=== PATIENT | male | born 1980 | race African-American/Black ===

== ENCOUNTER 2016-07-11 16:50 | Emergency (ER) | payer OTHER ==
[~2016-07-11] VITALS: Ht 170.2 cm; Wt 103.0 kg
[2016-07-11 16:51] VITALS: BP 114/68; PULSE 65; RESP 15; TEMP 98.2; O2SAT 98
[2016-07-11] MEDS ORDERED: PRAZ1 PO (18:28)
[2016-07-11] MEDS ORDERED: ALPR.5 PO (18:28)
[2016-07-11] MEDS ORDERED: KETOROLAC TROMETHAMINE 60 MG/2 ML (IM) VIAL IM ONE (18:30)
[2016-07-11] MEDS ORDERED: ONDANSETRON ODT 4 MG TAB PO ONE (18:30)
[2016-07-11] MEDS ORDERED: diphenhydrAMINE HCL 50 MG CAP PO ONE (18:30)
[2016-07-11] MEDS ORDERED: ZITHTAB PO (18:33)
[2016-07-11] MEDS ORDERED: IBUP800T23 PO (18:33)
[2016-07-11] MEDS ORDERED: MOME17I EACH NARE (18:34)
[2016-07-11] MEDS ORDERED: BENZ100 PO (18:34)
--- NOTE | 2016-07-11 18:51 | PD ---
HPI Chief Complaint: Headache Time Seen by Provider: 18:28 Travel History International Travel<30 days: No Contact w/Intl Traveler<30days: No Traveled to known affect area: No History of Present Illness HPI 36-year-old male presents to the emergency Department with complaint of headache and "brain zaps "3-4 weeks. He has been seen in the ER 3 times at other hospitals in the past 3 weeks. He has been seen by the [facility] twice and for [facility] just this past Thursday. Per the patient he has had a CT brain which was negative. He has had an MRI of the brain which was negative. He has a follow-up appointment on August 11 with neurology. Describes the headache as "just a sensation "that is all over. Describes it as pulsations and electrical shocks. Headache gradually onset. It was not sudden onset. He says the headache is constant and fluctuates in intensity. Rates headache 6/10. He has taken ibuprofen with some relief of the headache. He thinks the headache may be related to "antidepressant withdrawals "from Prozac that he last took at the end of April or beginning of May. He denies change in mentation, confusion, disorientation. Denies focal deficits or weakness. Denies paresthesias, loss of sensation, decreased range of motion, decreased strength to all extremities. Denies change in speech. Denies difficulty with ambulation. Patient is also complaining of onset of cough, nasal congestion, chest congestion this week. Said he had a fever when he was seen in the ER on Thursday for [facility] but did not know how high his fever was. Reports nausea without vomiting. Reports diarrhea. Had a flu test on Thursday which was negative. Denies sore throat, ear pain. Reports sinus pressure. Has taken cold and flu pills with some relief of symptoms. Denies illicit drug use. Reports social EtOH use. No known allergies. Takes Minipress for history of nightmares. Dr. Srinivasan is primary care provider. No other modifying factors or associated signs and symptoms. PFSH Social History Alcohol Use: Yes (socially) Tobacco Use: No Substance Use: No Allergies-Medications (Allergen,Severity, Reaction): Coded Allergies: No Known Allergies (Unverified , 07/11/16) Reported Meds & Prescriptions Reported Meds & Active Scripts Active Tessalon Perles (Benzonatate) 100 Mg Cap 100 Mg PO TID PRN Nasonex Nasal Derby (Mometasone Furoate) 50 Mcg/Act Naspr 2 Derby EACH NARE DAILY PRN Ibuprofen 800 Mg Tab 800 Mg PO Q6HR PRN Zithromax Z-Dirk (Azithromycin) 250 Mg Dspk 250 Mg PO DIRECTED 500 MG (2 tabs) day 1, then 1 tab days 2-5. Reported Xanax (Alprazolam) 0.5 Mg Tab 0.5 Mg PO Q6H PRN Minipress (Prazosin HCl) 1 Mg Cap 1 Mg PO HS Review of Systems Except as stated in HPI: all other systems reviewed are Neg Physical Exam Narrative GENERAL: Well-nourished, well-developed male patient, in no acute distress; afebrile, nontoxic-appearing SKIN: Warm and dry. HEAD: Atraumatic. Normocephalic. No facial droop. Tongue midline. EYES: Pupils equal and round at 3 mm with brisk reaction. No scleral icterus. No injection or drainage. PERRLA. EOMI. ENT: Mucosa pink and moist. No erythema or exudates. No uvular edema. No uvular , palatal, or tonsillar deviation. Airway patent. Nasal turbinates appear normal without nasal blood, purulent drainage or septal hematoma. EARS: Bilateral pinnae and external canals appear within normal limits. Bilateral tympanic membranes without erythema, dullness or perforation. NECK: Trachea midline. No lymphadenopathy. CARDIOVASCULAR: Regular rate and rhythm. No murmur appreciated. RESPIRATORY: No accessory muscle use. Clear to auscultation. Breath sounds equal bilaterally. GASTROINTESTINAL: Abdomen soft, non-tender, nondistended. Hepatic and splenic margins not palpable. Bowel sounds are active 4 quadrants. MUSCULOSKELETAL: No obvious deformities. No clubbing. No cyanosis. No edema. NEUROLOGICAL: Awake and alert. Oriented 4. No obvious cranial nerve deficits. Motor grossly within normal limits. Normal speech. No ataxia. No mid -line drift. Moves all extremities. 5/5 strength to all extremities. PSYCHIATRIC: Appropriate mood and affect; insight and judgment normal. Data Data Last Documented VS Vital Signs Date Time Temp Pulse Resp B/P Pulse Ox O2 Delivery O2 Flow Rate FiO2 07/11/16 16:51 98.2 65 15 114/68 98 Orders Ondansetron Odt (Zofran Odt) (07/11/16 18:30) Ketorolac Inj (Toradol Inj) (07/11/16 18:30) Diphenhydramine (Benadryl) (07/11/16 18:30) [facility] Medical Decision Making Medical Screen Exam Complete: Yes Emergency Medical Condition: Yes Medical Record Reviewed: Yes Differential Diagnosis Cluster headache, tension headache, trigeminal neuralgia, viral illness, upper respiratory infection Narrative Course 36-year-old male with headache for 3-4 weeks. He has been seen 3 times at ERs in the last 3 weeks. Per the patient had a CT of the brain which was negative and MRI of the brain which was negative. He has a follow-up appointment on August 11 with a neurologist. The headache was gradual onset and the patient denies it being the worst headache of his life. Neuro exam is unremarkable. He has no focal deficits or weakness. Physical exam is also consistent with viral illness times one week. He was seen just this past Thursday at [facility] and was negative for the flu. Patient is afebrile and nontoxic- appearing. Patient is requesting antibiotics. I will prescribe antibiotics per patient request. I discussed viral illness and symptomatic management. I discussed the patient with my attending physician, Dr. Horner, and she agrees with my treatment plan and recommended discussing lumbar puncture. I discussed lumbar puncture with the patient and he states he does not feel his headache is that bad, and declines at this time and is comfortable with outpatient follow-up. Azithromycin, Tessalon Perles, Nasonex nasal spray, ibuprofen prescribed for home. Instructed patient to follow-up with neurologist as scheduled. Patient verbalized understanding and agreement with treatment plan. Patient is medically cleared and stable for discharge. Discussed reasons to return to the emergency department. Instructed patient to follow up with primary care provider. Patient agrees with treatment plan. The patients vital signs are stable and the patient is stable for outpatient follow- up and treatment. Patient discharged home, stable and in no acute distress. Diagnosis Primary Impression: Headache Qualified Code: R51 - Nonintractable headache, unspecified chronicity pattern , unspecified headache type Additional Impression: Viral illness Referrals: Neurologist Primary Care Physician Patient Instructions: Acute Headache (ED), Cluster Headache (ED), Cold Symptoms (ED), General Headache (ED), General Instructions, Migraine Headache ( ED), Safe Use of Cough and Cold Medicines (ED), Tension Headache (ED) Departure Forms: Tests/Procedures, Work Release Enter return to work date: Jul 12, 2016 Additional Instructions: Ibuprofen or Tylenol as directed and as needed to reduce headache Get plenty of rest: do not over sleep rest and relax in a dark, quiet room as needed Place an ice pack on the back of your neck to reduce head pain as needed Keep a headache diary of what triggers your headaches and what treatment is most effective Avoid identifiable triggers Avoid smoking, alcohol and caffeine consumption Reduce stress Follow-up with primary care provider within 1-2 days Follow-up with neurology Return immediately to the emergency department with worsening symptoms Antibiotics as prescribed and complete full course Ibuprofen or Tylenol as instructed and as needed for fever/pain [id number] cough and cold medications as directed and as needed for symptom management Get plenty of sleep/rest Drink plenty of fluids to prevent dehydration; popsicles and Gatorade Use an air humidifier/turn off ceiling fans Follow-up with primary care provider Return immediately to the emergency department with worsening of symptoms Med/Other Pt SpecificInfo: Prescription(s) given Scripts Benzonatate (Tessalon Perles)100 Mg [id number] Mg PO TID PRN (COUGH) #20 CAP Ref 0 Prov:Reba Man 07/11/16 Mometasone Nasal Derby (Nasonex Nasal Derby)50 Mcg/Act Naspr2 Derby EACH NARE DAILY PRN (NASAL CONGESTION) #1 BOTTLE Ref 0 Prov:Reba Man 07/11/16 Ibuprofen 800 Mg [id number] Mg PO Q6HR PRN (PAIN) #30 TAB Ref 0 Prov:Reba Man 07/11/16 Azithromycin (Zithromax Z-Dirk)250 Mg [id number] Mg PO DIRECTED #1 DSPK Ref 0 500 MG (2 tabs) day 1, then 1 tab days 2-5. Prov:Reba Man 07/11/16 Disposition: 01 DISCHARGE HOME Condition: Stable Reba Man Jul 11, 2016 18:51
== END 2016-07-11 19:04 | disposition home or self-care (01) ==
LOC: NETRI 16:50
DX: B34.9 Viral infection, unspecified (principal)
CPT/HCPCS: 96372; 99283; J1885; Q0163